=== PATIENT | male | born 2000 | race Caucasian/White ===

== ENCOUNTER 2018-06-21 22:45 | Emergency (ER) | payer SELFPAY ==
[~2018-06-21] VITALS: Ht 193 cm; Wt 123.8 kg
[2018-06-21] MEDS ORDERED: normal saline 1000ML IV soln IVB ONE (23:30)
[2018-06-21] MEDS ORDERED: propofol 1000mg/100ml bottle 100 ML IV PRN (23:30)
[2018-06-21] MEDS ORDERED: propofol 10mg/ml 20ml vial IV ONE (23:35)
[2018-06-22 00:45] VITALS: BP 139/64
== END 2018-06-22 01:02 | disposition home or self-care (01) ==
LOC: ER 22:46
DX: S03.03XA Dislocation of jaw, bilateral, initial encounter (principal); F17.200 Nicotine dependence, unspecified, uncomplicated; W22.8XXA Striking against or struck by other objects, initial encounter; Y93.89 Activity, other specified; Y92.89 Other specified places as the place of occurrence of the external cause; Y99.9 Unspecified external cause status
CPT/HCPCS: 21480; 70100; 94760; 99152; 99285; J2704; J7030